=== PATIENT | male | born 1955 | race Two or more races ===

== ENCOUNTER 2023-08-07 00:11 | Inpatient (IN) | payer MEDICARE, OTHER ==
[~2023-08-07] VITALS: Ht 167.6 cm; Wt 79.1 kg
[2023-08-07 01:42] LABS: BASOPHILS % (AUTO) 0.4 % (0.0-2.0); EOSINOPHILS # (AUTO) 0.2 K/uL (0.0-0.7); EOSINOPHILS % (AUTO) 3.1 % (0.0-6.0); HEMATOCRIT 45 % (39-51); HEMOGLOBIN 15.1 g/dL (13.5-17.5); LYMPHOCYTES # (AUTO) 1.3 K/uL (0.8-4.8); LYMPHOCYTES % (AUTO) 22.1 % (20.0-44.0); MEAN CORPUSCULAR HEMOGLOBIN 30 PG (26.0-33.0); MEAN CORPUSCULAR HGB CONC 34 g/dl (31.0-36.0); MEAN CORPUSCULAR VOLUME 90 fL (80-96); MONOCYTES # (AUTO) 0.5 K/uL (0.1-1.30); NEUTROPHILS # (AUTO) 3.7 K/uL (1.8-8.9); NEUTROPHILS % (AUTO) 65.4 % (43.0-81.0); PLATELET COUNT (AUTO) 210 K/uL (150-450); RED BLOOD CELL COUNT(AUTO) 5.03 MIL/uL (4.5-6.0); RED CELL DISTRIBUTION WIDTH 14.4 % (11.5-15.0); WHITE BLOOD COUNT (AUTO) 5.7 K/uL (4.3-11.0)
[2023-08-07 01:52] LABS: CALCIUM, SERUM 9.1 mg/dL (8.5-10.1); CARBON DIOXIDE 27 mmol/L (21-32); CHLORIDE 103 mmol/L (98-107); CREATININE 1.7 mg/dL (0.6-1.3); GLUCOSE 139 mg/dL (74-106); SODIUM SERUM 140 mmol/L (136-145); UREA NITROGEN, BLOOD 26 mg/dL (7-18)
[2023-08-07 02:03] LABS: ALANINE AMINOTRANSFERASE 33 U/L (12-78); ALBUMIN 3.6 g/dL (3.4-5.0); ALKALINE PHOSPHATASE 86 U/L (46-116); ASPARTATE AMINOTRANSFERASE 22 U/L (15-37); BILIRUBIN,TOTAL 0.2 mg/dL (0.2-1.0); NT-PRO BNP 719 pg/mL (0-125); TOTAL PROTEIN, SERUM 7.6 g/dL (6.4-8.2)
[2023-08-07] MEDS ORDERED: ASPIRIN 325 MG TABLET PO ONE (02:30)
[2023-08-07] MEDS ORDERED: ENOXAPARIN SODIUM 30 MG/0.3 ML DISP.SYRIN ONE (02:41)
[2023-08-07] MEDS ORDERED: ENOXAPARIN SODIUM 40 MG/0.4 ML DISP.SYRIN SQ ONE (02:41)
[2023-08-07] MEDS ORDERED: ASPIRIN EC 325 MG TABLET.DR PO ONE (02:42)
[2023-08-07] MEDS ORDERED: ENOXAPARIN SODIUM 80 MG/0.8 ML DISP.SYRIN SQ ONE (03:00)
[2023-08-07] MEDS ORDERED: HYDROCODONE/APAP 5/325MG TABLET PO PRN (03:30)
[2023-08-07] MEDS ORDERED: MAGNESIUM HYDROXIDE 30 ML UDC PO PRN (03:30)
[2023-08-07] MEDS ORDERED: NITROGLYCERIN 0.4 MG/TAB BOTTLE SL PRN (03:30)
[2023-08-07] MEDS ORDERED: MAG HYDROX/AL HYDROX/SIMETH 30 ML UDC PO PRN (03:30)
[2023-08-07] MEDS ORDERED: Z GUARD REMEDY 4 OZ OINT TP PRN (03:30)
[2023-08-07] MEDS ORDERED: ZOLPIDEM TARTRATE 5 MG TABLET PO PRN (03:30)
[2023-08-07] MEDS ORDERED: ACETAMINOPHEN 325 MG TABLET PO PRN (03:30)
[2023-08-07] MEDS ORDERED: MORPHINE SULFATE INJ 2 MG/ML DISP.SYRIN IV PRN (03:30)
[2023-08-07] MEDS ORDERED: ONDANSETRON HCL/PF 4 MG/2 ML VIAL IVP PRN (03:30)
[2023-08-07] MEDS ORDERED: ASPIRIN EC 81 MG TABLET.DR PO ONE (09:29)
[2023-08-07] MEDS ORDERED: PANTOPRAZOLE 40 MG TABLET.DR PO ONE (09:30)
[2023-08-07] MEDS: ASPIRIN 81 MG TAB.CHEW PO SCH (09:32)
[2023-08-07] MEDS: PANTOPRAZOLE 40 MG TABLET.DR PO SCH (09:33)
[2023-08-07] MEDS ORDERED: ASPIRIN 81 MG TAB.CHEW ONE (09:38)
[2023-08-07] MEDS ORDERED: ROSU20TA2 PO (09:43)
[2023-08-07] MEDS ORDERED: ASPI-1420 PO (09:43)
[2023-08-07] MEDS ORDERED: ALFU10TA10 PO (09:43)
[2023-08-07] MEDS ORDERED: GLIP10TA11 PO (09:43)
[2023-08-07] MEDS ORDERED: EZET10TA16 PO (09:43)
[2023-08-07] MEDS ORDERED: TAMS-12 PO (09:43)
[2023-08-07] MEDS ORDERED: AMLO10TA4 PO (09:43)
[2023-08-07] MEDS ORDERED: DOXA4TAB3 PO (09:43)
[2023-08-07] MEDS ORDERED: ALLO300T2 PO (09:43)
[2023-08-07] MEDS ORDERED: CARV25TA2 PO (09:43)
[2023-08-07] MEDS ORDERED: hydrALAZINE HCL IV 20 MG VIAL IV STA (13:48)
[2023-08-07 14:37] VITALS: BP 144/88; TEMP 98.4; O2SAT 95
[2023-08-07] MEDS: ENOXAPARIN SODIUM 80 MG/0.8 ML DISP.SYRIN SQ SCH (15:00)
[2023-08-07 16:00] VITALS: BP 144/88; TEMP 98.4; O2SAT 95
[2023-08-07] MEDS: glipiZIDE 10 MG TABLET PO SCH (17:00)
[2023-08-07] MEDS: CARVEDILOL 12.5 MG TABLET PO SCH (17:00)
[2023-08-07 18:00] VITALS: BP 149/99; O2SAT 98
[2023-08-07 20:00] VITALS: BP 137/84; TEMP 97.9; O2SAT 97
[2023-08-07] MEDS: ATORVASTATIN 10 MG TABLET PO SCH (21:36)
[2023-08-07] MEDS: DOXAZOSIN MESYLATE (4 MG) 4 MG TABLET PO SCH (21:39)
[2023-08-08] VITALS: BP 135/84; TEMP 97.7; O2SAT 97
[2023-08-08] MEDS: ENOXAPARIN SODIUM 80 MG/0.8 ML DISP.SYRIN SQ SCH ×2 (02:21→15:00)
[2023-08-08 04:00] VITALS: BP 128/76; TEMP 97.7; O2SAT 96
[2023-08-08 07:00] VITALS: BP 127/80; TEMP 98.6; O2SAT 95
[2023-08-08 07:34] LABS: BASOPHILS % (AUTO) 0.3 % (0.0-2.0); EOSINOPHILS # (AUTO) 0.1 K/uL (0.0-0.7); EOSINOPHILS % (AUTO) 2.1 % (0.0-6.0); HEMATOCRIT 43 % (39-51); HEMOGLOBIN 14.4 g/dL (13.5-17.5); LYMPHOCYTES # (AUTO) 1.1 K/uL (0.8-4.8); LYMPHOCYTES % (AUTO) 20.4 % (20.0-44.0); MEAN CORPUSCULAR HEMOGLOBIN 30 PG (26.0-33.0); MEAN CORPUSCULAR HGB CONC 33 g/dl (31.0-36.0); MEAN CORPUSCULAR VOLUME 90 fL (80-96); MONOCYTES # (AUTO) 0.3 K/uL (0.1-1.30); NEUTROPHILS % (AUTO) 71.2 % (43.0-81.0); PLATELET COUNT (AUTO) 196 K/uL (150-450); RED BLOOD CELL COUNT(AUTO) 4.79 MIL/uL (4.5-6.0); RED CELL DISTRIBUTION WIDTH 14.5 % (11.5-15.0); WHITE BLOOD COUNT (AUTO) 5.6 K/uL (4.3-11.0)
[2023-08-08] MEDS: PANTOPRAZOLE 40 MG TABLET.DR PO SCH (07:39)
[2023-08-08] MEDS ORDERED: IV NS 0.9% 1,000 ML IV PRN (08:00)
[2023-08-08 08:19] LABS: THYROID STIMULATING HORMONE 1.427 uIU/mL (0.358-3.74)
[2023-08-08 08:30] LABS: BILIRUBIN,TOTAL 0.3 mg/dL (0.2-1.0); CALCIUM, SERUM 8.8 mg/dL (8.5-10.1); CREATININE 1.4 mg/dL (0.6-1.3); MAGNESIUM 2.2 mg/dL (1.8-2.4); PHOSPHORUS 4.2 mg/dL (2.5-4.9); POTASSIUM 4.1 mmol/L (3.5-5.1); TOTAL PROTEIN, SERUM 6.7 g/dL (6.4-8.2)
[2023-08-08] MEDS: TAMSULOSIN 0.4 MG CAP.SR.24H PO SCH (09:04)
[2023-08-08] MEDS: glipiZIDE 10 MG TABLET PO SCH ×2 (09:04→17:25)
[2023-08-08] MEDS: ASPIRIN 81 MG TAB.CHEW PO SCH (09:04)
[2023-08-08] MEDS: EZETIMIBE 10 MG TABLET PO SCH (09:04)
[2023-08-08] MEDS: ALLOPURINOL 100 MG TABLET PO SCH (09:05)
[2023-08-08] MEDS: CARVEDILOL 12.5 MG TABLET PO SCH ×2 (09:06→17:25)
[2023-08-08] MEDS: AMLODIPINE BESYLATE 10 MG TABLET PO SCH (09:07)
[2023-08-08] MEDS: ALFUZOSIN HCL 10 MG PO SCH (09:08)
[2023-08-08] MEDS: hydrALAZINE HCL 50 MG TABLET PO SCH ×3 (09:09→17:25)
[2023-08-08] MEDS: ASPIRIN EC 81 MG TABLET.DR PO SCH (09:11)
[2023-08-08 11:30] LABS: ALBUMIN 3.3 g/dL (3.4-5.0)
[2023-08-08 12:03] LABS: CHOLESTEROL 145 mg/dL (<200); HDL CHOLESTEROL 36 mg/dL (40-60); LDL 71 mg/dL (0-99); TRIGLYCERIDES 260 mg/dL (30-150)
[2023-08-08 13:00] VITALS: BP 124/82; TEMP 98.4; O2SAT 94
[2023-08-08 16:11] VITALS: BP 121/78; TEMP 98.4; O2SAT 96
[2023-08-08 20:00] VITALS: BP 126/71; TEMP 98.1; O2SAT 96
[2023-08-08] MEDS: DOXAZOSIN MESYLATE (4 MG) 4 MG TABLET PO SCH (21:14)
[2023-08-08] MEDS: ATORVASTATIN 10 MG TABLET PO SCH (21:14)
[2023-08-09] VITALS: BP 112/68; TEMP 98.5; O2SAT 95
[2023-08-09 00:05] LABS: INR 0.96 (0.91-1.10); PARTIAL THROMBOPLASTIN TIME 30.7 SEC (24.3-34.3); PROTHROMBIN TIME 10.2 SECS (9.2-11.1)
[2023-08-09] MEDS ORDERED: HEPARIN INFUSION/D5W 500 ML IV PRN (00:30)
[2023-08-09] MEDS ORDERED: HEPARIN SODIUM, PORCINE 5000 UNITS/1 ML VIAL IV ONE ×2 (01:00)
[2023-08-09] MEDS ORDERED: HEPARIN INFUSION/D5W 500 ML IV ONE (01:03)
[2023-08-09 04:00] VITALS: BP 127/76; TEMP 98.1; O2SAT 95
[2023-08-09 06:59] LABS: BASOPHILS % (AUTO) 0.3 % (0.0-2.0); EOSINOPHILS # (AUTO) 0.2 K/uL (0.0-0.7); EOSINOPHILS % (AUTO) 2.8 % (0.0-6.0); HEMATOCRIT 44 % (39-51); HEMOGLOBIN 14.7 g/dL (13.5-17.5); LYMPHOCYTES # (AUTO) 1.4 K/uL (0.8-4.8); LYMPHOCYTES % (AUTO) 23.2 % (20.0-44.0); MEAN CORPUSCULAR HEMOGLOBIN 30 PG (26.0-33.0); MEAN CORPUSCULAR HGB CONC 33 g/dl (31.0-36.0); MEAN CORPUSCULAR VOLUME 90 fL (80-96); MONOCYTES # (AUTO) 0.5 K/uL (0.1-1.30); MONOCYTES % (AUTO) 7.7 % (2.0-12.0); PLATELET COUNT (AUTO) 191 K/uL (150-450); RED BLOOD CELL COUNT(AUTO) 4.89 MIL/uL (4.5-6.0); RED CELL DISTRIBUTION WIDTH 14.4 % (11.5-15.0); WHITE BLOOD COUNT (AUTO) 6.1 K/uL (4.3-11.0)
[2023-08-09] MEDS: PANTOPRAZOLE 40 MG TABLET.DR PO SCH (07:48)
[2023-08-09] MEDS: EZETIMIBE 10 MG TABLET PO SCH (08:20)
[2023-08-09] MEDS: ASPIRIN EC 81 MG TABLET.DR PO SCH (08:20)
[2023-08-09] MEDS: ALLOPURINOL 100 MG TABLET PO SCH (08:20)
[2023-08-09] MEDS: glipiZIDE 10 MG TABLET PO SCH (08:20)
[2023-08-09] MEDS: ASPIRIN 81 MG TAB.CHEW PO SCH (08:20)
[2023-08-09] MEDS: ALFUZOSIN HCL 10 MG PO SCH (08:21)
[2023-08-09] MEDS: TAMSULOSIN 0.4 MG CAP.SR.24H PO SCH (08:21)
[2023-08-09] MEDS: AMLODIPINE BESYLATE 10 MG TABLET PO SCH (08:22)
[2023-08-09] MEDS: CARVEDILOL 12.5 MG TABLET PO SCH (08:22)
[2023-08-09] MEDS: hydrALAZINE HCL 50 MG TABLET PO SCH ×2 (08:22→12:09)
[2023-08-09 08:30] VITALS: BP 132/83; TEMP 98.6; O2SAT 97
[2023-08-09 08:49] LABS: MAGNESIUM 2.1 mg/dL (1.8-2.4); PHOSPHORUS 4.5 mg/dL (2.5-4.9)
[2023-08-09] MEDS ORDERED: ENOXAPARIN SODIUM 40 MG/0.4 ML DISP.SYRIN SQ SCH (09:00)
[2023-08-09 12:09] VITALS: BP 108/69
[2023-08-10 08:06] LABS: PTH, INTACT 48 pg/mL (15-65)
[2023-08-10 13:07] LABS: *SPE A/G RATIO 1.1 (0.7-1.7); *SPE ALBUMIN 3.2 g/dL (2.9-4.4); *SPE ALPHA-1-GLOBULIN 0.2 g/dL (0.0-0.4); *SPE ALPHA-2-GLOBULIN 0.8 g/dL (0.4-1.0); *SPE GLOBULIN, TOTAL 2.9 g/dL (2.2-3.9); *SPE M-SPIKE Not Observed g/dL (Not Observed); *SPE PROTEIN TOTAL 6.1 g/dL (6.0-8.5); *SPEGAMMA GLOBULIN 0.9 g/dL (0.4-1.8)
== END 2023-08-09 13:30 | disposition left against medical advice (07) | DRG 682 ==
LOC: ER 00:13 → TRANSITION 07:58 → TELE 13:49
PROVIDERS: ADMIT Nurse Practitioner Acute Care; ATTEND Nurse Practitioner Acute Care
DX: N17.0 Acute kidney failure with tubular necrosis (principal); I21.A1 Myocardial infarction type 2; I25.110 Atherosclerotic heart disease of native coronary artery with unstable angina pectoris; I25.10 Atherosclerotic heart disease of native coronary artery without angina pectoris; Z79.82 Long term (current) use of aspirin; N18.9 Chronic kidney disease, unspecified; Z90.5 Acquired absence of kidney; N40.0 Benign prostatic hyperplasia without lower urinary tract symptoms; E78.5 Hyperlipidemia, unspecified; E11.22 Type 2 diabetes mellitus with diabetic chronic kidney disease; I12.9 Hypertensive chronic kidney disease with stage 1 through stage 4 chronic kidney disease, or unspecified chronic kidney disease; M10.9 Gout, unspecified; Z95.5 Presence of coronary angioplasty implant and graft; M89.8X9 Other specified disorders of bone, unspecified site
CPT/HCPCS: 36415; 71045-TC; 76770-TC; 80048-TC; 80053-TC; 80061-TC; 80076-TC; 82550-TC; 83735-TC; 83880; 83970; 84100-TC; 84155; 84165; 84443-TC; 84484-TC; 85025-TC; 85610-TC; 85730-TC; 93307-TC; A4223; G0378; J1644; J1650